=== PATIENT | male | born 1970 ===

== ENCOUNTER 2017-08-22 07:26 | Emergency (ER) | payer OTHER ==
[2017-08-22 07:26] VITALS: BMI 27.3
[2017-08-22 07:31] VITALS: BP 135/86; PULSE 63; TEMP 98.3; O2SAT 99
--- NOTE | 2017-08-22 07:46 | C.PDOC ---
46 y/o male presents to ED with complains of itchy rash to both arms for 6 weeks. Patient reports she noticed redness under eye today and denies fever, drainage, pain or any other complaints at this time. (Bailey Jaquez) History Per: Patient History/Exam Limitations: no limitations Onset/Duration Of Symptoms: Days Current Symptoms Are (Timing): Still Present <Bailey Jaquez - Last Filed: 08/22/17 13:56> <Breezy Arvizu - Last Filed: 08/22/17 20:27> Time Seen by Provider: 08/22/17 07:31 Chief Complaint (Nursing): Abnormal Skin Integrity Past Medical History Reviewed: Historical Data, Nursing Documentation, Vital Signs - Medical History PMH: No Chronic Diseases Surgical History: No Surg Hx Family History: States: No Known Family Hx - Social History Hx Tobacco Use: No Hx Alcohol Use: No Hx Substance Use: No - Immunization History Hx Tetanus Toxoid Vaccination: No Hx Influenza Vaccination: No Hx Pneumococcal Vaccination: No <Bailey Jaquez - Last Filed: 08/22/17 13:56> Vital Signs: Last Vital Signs Temp 98.3 F 08/22/17 07:28 Pulse 63 08/22/17 07:28 Resp 18 08/22/17 08:00 BP 135/86 08/22/17 07:28 Pulse Ox 99 08/22/17 13:57 - [facility] Procedures UNILATERAL ORCHIECTOMY (11/13/14) Review Of Systems Constitutional: Negative for: Fever, Chills Eyes: Positive for: Redness Cardiovascular: Negative for: Chest Pain Respiratory: Negative for: Cough, Shortness of Breath Skin: Positive for: Rash <Bailey Jaquez - Last Filed: 08/22/17 13:56> Physical Exam - Physical Exam Appears: Non-toxic, No Acute Distress Skin: Warm, Dry, Rash (Grady oval shaped patches dry and scaly to right forearm and similar lesion on left arm with smaller blisters scattered. Scant erythematous papular lesions under right eye.) Head: Atraumatic, Normacephalic Eye(s): bilateral: Normal Inspection Oral Mucosa: Moist Throat: Normal, No Erythema, No Exudate Neck: Normal ROM, Supple Cardiovascular: Rhythm Regular Respiratory: Normal Breath Sounds, No Rales, No Rhonchi, No Wheezing Neurological/Psych: Oriented x3, Normal Speech, Normal Cognition <JaquezBailey ireland - Last Filed: 08/22/17 13:56> ED Course And Treatment O2 Sat by Pulse Oximetry: 99 (RA) Pulse Ox Interpretation: Normal <Bailey Jaquez - Last Filed: 08/22/17 13:56> Medical Decision Making: Patient with rash to both arms for one week. No signs of cellulitis. Advise to avoid skin irritants and to keep skin hydrated. Will prescribe topical cream to use and instruct to follow up with cream ripener. (Bailey Jaquez) Disposition Counseled Patient/Family Regarding: Need For Followup, Rx Given - Disposition Disposition Time: 07:45 - POA Present On Arrival: None <LeonidBailey L - Last Filed: 08/22/17 13:56> <Breezy Arvizu - Last Filed: 08/22/17 20:27> - Disposition Referrals: Wayne Mccarty MD [Staff Provider] - [facility] [Outside] Disposition: HOME/ ROUTINE Condition: GOOD Additional Instructions: Take a 20-minute lukewarm bath or shower once a day. Within 3 minutes of getting out of the water, apply a moisturizer to your still-damp skin. This helps hydrate dry skin Apply cream to affected areas You can cover areas with bandage if you like Follow up with cream ripener Prescriptions: Betamethasone Valerate 0.1% [Valisone] 45 gm EXT BID #1 tube Instructions: Eczema (Atopic Dermatitis) (DC) Forms: [facility] (Czech), Work Excuse - Clinical Impression Clinical Impression: Nummular eczema - PA / DIRECTOR OF TESTING / Resident Statement ADRIANA has reviewed & agrees with the documentation as recorded. - Scribe Statement The provider has reviewed the documentation as recorded by the Scribe <Bailey Jaquez - Last Filed: 08/22/17 13:56> - PA / DIRECTOR OF TESTING / Resident Statement ADRIANA has reviewed & agrees with the documentation as recorded. <Breezy Arvizu - Last Filed: 08/22/17 20:27> - Scribe Statement Shilpi Leary All medical record entries made by the Scribe were at my direction and personally dictated by me. I have reviewed the chart and agree that the record accurately reflects my personal performance of the history, physical exam, medical decision making, and the department course for this patient. I have also personally directed, reviewed, and agree with the discharge instructions and disposition. (Bailey Jaquez)
[2017-08-22 08:17] VITALS: RESP 18
== END 2017-08-22 08:18 | disposition home or self-care (01) ==
LOC: C.ER 07:26
DX: L30.0 Nummular dermatitis (principal)

== ENCOUNTER 2018-06-01 23:52 | Emergency (ER) | payer OTHER ==
[2018-06-01 23:55] VITALS: BMI 27.3
[2018-06-02 00:05] VITALS: BP 117/74; PULSE 68; RESP 14; TEMP 97.7; O2SAT 98
[2018-06-02] MEDS ORDERED: Naproxen 550 mg Tab PO ONE (00:32)
--- NOTE | 2018-06-02 00:54 | C.PDOC ---
History Of Present Illness 47 year old male is presents to the ED c/o chronic left knee pain for the past 2 months. Patient reports pain worsened today which prompted the evaluation. Patient states in his job he spend several hours standing. Patient tried taking OTC Ibuprofen with no relief. Patient denies injury, fall, trauma, weakness, numbness. Time Seen by Provider: 06/02/18 00:07 Chief Complaint (Nursing): Lower Extremity Problem/Injury History Per: Patient History/Exam Limitations: no limitations Onset/Duration Of Symptoms: Persistent Current Symptoms Are (Timing): Still Present Severity: None Recent travel outside of the [place]: No Additional History Per: Patient - Knee Description Of Injury: Other Alleviating Factor(s): OTC Pain Medication Past Medical History Reviewed: Historical Data, Nursing Documentation, Vital Signs Vital Signs: Last Vital Signs Temp 97.7 F 06/02/18 00:02 Pulse 68 06/02/18 00:02 Resp 14 06/02/18 00:02 BP 117/74 06/02/18 00:02 Pulse Ox 98 06/02/18 00:02 - Medical History PMH: No Chronic Diseases Denies: Chronic Kidney Disease Surgical History: No Surg Hx - [facility] Procedures UNILATERAL ORCHIECTOMY (11/13/14) Family History: States: Unknown Family Hx - Social History Hx Tobacco Use: No Hx Alcohol Use: No Hx Substance Use: No - Immunization History Hx Tetanus Toxoid Vaccination: No Hx Influenza Vaccination: No Hx Pneumococcal Vaccination: No Review Of Systems Constitutional: Negative for: Fever, Chills Gastrointestinal: Negative for: Nausea, Vomiting Musculoskeletal: Positive for: Leg Pain Skin: Negative for: Rash Neurological: Negative for: Weakness, Numbness, Headache, Dizziness Physical Exam - Physical Exam Appears: Non-toxic, No Acute Distress Skin: Normal Color, Warm, Dry Head: Atraumatic, Normacephalic Eye(s): bilateral: Normal Inspection Neck: Normal ROM, Supple Extremity: Normal ROM, No Tenderness (no wamrth ), Capillary Refill (< 2 seconds), No Swelling, Other (old healed scab anterior aspect left knee) Pulses: Left Dorsalis Pedis: Normal, Right Dorsalis Pedis: Normal Neurological/Psych: Oriented x3, Normal Speech, Normal Cognition, Normal Motor, Normal Sensation Gait: Steady ED Course And Treatment O2 Sat by Pulse Oximetry: 98 (ON RA) Pulse Ox Interpretation: Normal Progress Note: Patient was advised to continue taking NSAIDs for pain but to up the dosage. Patient was informed there was no need for imaging to be done. Patient advised to follow up with PMD and ortho for further evaluation. Disposition Counseled Patient/Family Regarding: Diagnosis, Need For Followup - Disposition Disposition: HOME/ ROUTINE Condition: STABLE Additional Instructions: Use knee brace for support Take medications as prescribed for pain Follow up in clinic or your doctor Return to ER if worse Prescriptions: Naproxen [Naprosyn] 1 tab PO BID PRN #20 tab PRN Reason: Pain Instructions: Patellofemoral Pain (DC) Forms: [employer] (Moldovan) - Clinical Impression Clinical Impression: Knee joint pain - PA / BULKING MACHINE OPERATOR / Resident Statement MD/DO has reviewed & agrees with the documentation as recorded. - Scribe Statement The provider has reviewed the documentation as recorded by the Scribe David Mathews All medical record entries made by the Scribe were at my direction and personally dictated by me. I have reviewed the chart and agree that the record accurately reflects my personal performance of the history, physical exam, medical decision making, and the department course for this patient. I have also personally directed, reviewed, and agree with the discharge instructions and disposition.
== END 2018-06-02 01:05 | disposition home or self-care (01) ==
LOC: C.ER 23:52
DX: M25.562 Pain in left knee (principal)

== ENCOUNTER 2018-06-16 10:32 | Outpatient (CLI) | payer OTHER | END 2018-06-16 10:33 | disposition home or self-care (01) | LOC: C.LAB 10:32 | DX: M25.561 Pain in right knee (principal) ==

== ENCOUNTER 2018-06-16 11:30 | Emergency (ER) | payer OTHER ==
[2018-06-16 11:31] VITALS: BMI 27.3
[2018-06-16 12:01] VITALS: TEMP 97.5; O2SAT 98
--- NOTE | 2018-06-16 12:51 | C.PDOC ---
History Of Present Illness 47 year old male presents to the ED complaining of left knee pain ongoing for 2 months and worse for the past few days. Reports he was seen on 06/02 in the ED and instructed to follow up with Orthopedic. Reports the multi media specialist recommended an Xray and prescribed Meloxicam 15mg but he notes no relief. States he is also taking Ibuprofen 800mg with minimal improvement. States it hurts to walk or bear weight on that leg. Denies any prior injury or trauma. Time Seen by Provider: 06/16/18 12:12 Chief Complaint (Nursing): Lower Extremity Problem/Injury History Per: Patient History/Exam Limitations: no limitations Onset/Duration Of Symptoms: Days Current Symptoms Are (Timing): Still Present - Knee Currently Unable To: Bear Weight Alleviating Factor(s): denies: OTC Pain Medication Past Medical History Reviewed: Historical Data, Nursing Documentation, Vital Signs Vital Signs: Last Vital Signs Temp 97.5 F L 06/16/18 11:55 Pulse 70 06/16/18 11:55 Resp 20 06/16/18 11:55 BP 131/73 06/16/18 11:55 Pulse Ox 98 06/16/18 11:55 - Medical History PMH: Denies: Chronic Kidney Disease Other PMH: Glaucoma Other Surgeries: Hx of surgeries - [facility] Procedures UNILATERAL ORCHIECTOMY (11/13/14) Family History: States: No Known Family Hx - Social History Hx Tobacco Use: No Hx Alcohol Use: Yes Hx Substance Use: No - Immunization History Hx Tetanus Toxoid Vaccination: No Hx Influenza Vaccination: No Hx Pneumococcal Vaccination: No Review Of Systems Except As Marked, All Systems Reviewed And Found Negative. Musculoskeletal: Positive for: Other (right knee pain ) Neurological: Negative for: Weakness, Numbness Physical Exam - Physical Exam Appears: Non-toxic, No Acute Distress Skin: Warm, Dry Head: Normacephalic Eye(s): bilateral: Normal Inspection Nose: Normal Oral Mucosa: Moist Neck: Supple Chest: Symmetrical Cardiovascular: Rhythm Regular Respiratory: No Rales, No Rhonchi, No Wheezing, Other (NARD) Extremity: Tenderness (reproducible pain to medial aspect of left knee ), Capillary Refill (less than 2 sec to left knee ), No Deformity, Swelling (minimal swelling to left knee), No Other (knee subluxation) Extremity: Bilateral: Normal Color And Temperature, Normal ROM Pulses: Left Dorsalis Pedis: Normal, Right Dorsalis Pedis: Normal Neurological/Psych: Oriented x3, Normal Speech, Normal Motor, Normal Sensation Gait: Steady ED Course And Treatment O2 Sat by Pulse Oximetry: 98 (RA) Pulse Ox Interpretation: Normal - Other Rad L KNEE X-Ray: Interpreted by Me (NEG) Reevaluation Time: 13:18 Reassessment Condition: Improved (PS FEELS BETTER W MOTRIN 800 MG. ADVISED TO STOP MOBIC, CONT W MOTRIN AND CAN COMBO W TYLENOL. NEED FOR ORTHO FU) Medical Decision Making Medical Decision Making: Plan - XR left knee - Toradol 60mg IM Disposition Counseled Patient/Family Regarding: Studies Performed, Diagnosis, Need For Followup, Rx Given - Disposition Referrals: Tab Sparks III, MD [Staff Provider] - [facility] [Outside] [facility] [Outside] [facility],ORTHOPEDIST [Other] Disposition: HOME/ ROUTINE Disposition Time: 13:01 Condition: IMPROVED Instructions: Chronic Knee Pain (DC) Forms: [facility] (Romansh), Work Excuse - Clinical Impression Clinical Impression: Knee joint pain - Scribe Statement The provider has reviewed the documentation as recorded by the Scribe Kat Lee All medical record entries made by the Scribe were at my direction and personally dictated by me. I have reviewed the chart and agree that the record accurately reflects my personal performance of the history, physical exam, medical decision making, and the department course for this patient. I have also personally directed, reviewed, and agree with the discharge instructions and disposition.
[2018-06-16 13:31] VITALS: BP 127/79; PULSE 65; RESP 18
--- NOTE | 2018-06-16 17:48 | RAD ---
Date of service: 06/16/2018 PROCEDURE: Left Knee Radiographs. HISTORY: Pain. COMPARISON: None. TECHNIQUE: 2 views obtained. FINDINGS: BONES: Normal. No fracture. JOINTS: Normal. No osteoarthritis. JOINT EFFUSION: None. OTHER FINDINGS: None. IMPRESSION: No evidence of acute fracture or dislocation.
== END 2018-06-16 13:38 | disposition home or self-care (01) ==
LOC: C.ER 11:30
DX: M25.562 Pain in left knee (principal)

== ENCOUNTER 2018-07-06 19:43 | Emergency (ER) | payer OTHER ==
[2018-07-06 19:44] VITALS: BMI 27.3
[2018-07-06 19:53] VITALS: BP 132/81; PULSE 75; RESP 20; TEMP 97.9; O2SAT 96
--- NOTE | 2018-07-06 20:02 | C.PDOC ---
History Of Present Illness 47 year old male presents to ED with complaint of back pain s/p fall. Patient was playing with his son and hopping from one couch to another backwards and hit the wooden arm rest and fell on the floor. Patient states that he was on the floor for several minutes. He rates the pain as a 10/10 and throbbing. He denies head injury, loss of consciousness, headache, dizziness, numbness, tingling, and weakness. Time Seen by Provider: 07/06/18 19:54 Chief Complaint (Nursing): Back Pain History Per: Patient History/Exam Limitations: no limitations Onset/Duration Of Symptoms: Hrs Current Symptoms Are (Timing): Still Present Quality Of Discomfort: "Pain", Other (throbbing) Pain Scale Rating Of: 10 Previous Symptoms: None Associated Symptoms: denies: New Weakness, New Numbness Past Medical History Reviewed: Historical Data, Nursing Documentation, Vital Signs Vital Signs: Last Vital Signs Temp 97.9 F 07/06/18 19:44 Pulse 75 07/06/18 19:44 Resp 20 07/06/18 19:44 BP 132/81 07/06/18 19:44 Pulse Ox 96 07/06/18 19:44 - Medical History PMH: No Chronic Diseases Denies: Chronic Kidney Disease Surgical History: No Surg Hx - [facility] Procedures UNILATERAL ORCHIECTOMY (11/13/14) Family History: States: Unknown Family Hx - Social History Hx Tobacco Use: No Hx Alcohol Use: No Hx Substance Use: No - Immunization History Hx Tetanus Toxoid Vaccination: No Hx Influenza Vaccination: No Hx Pneumococcal Vaccination: No Review Of Systems Constitutional: Negative for: Weakness Genitourinary: Negative for: Incontinence Musculoskeletal: Positive for: Back Pain. Negative for: Neck Pain Neurological: Negative for: Weakness, Numbness, Headache, Other (loss of consciousness) Physical Exam - Physical Exam Appears: Well, Non-toxic, No Acute Distress Skin: Normal Color, Warm, Dry Head: Atraumatic, Normacephalic Neck: Normal ROM, Supple Chest: Symmetrical, No Deformity Cardiovascular: Rhythm Regular, No Murmur Respiratory: No Accessory Muscle Use, No Rales, No Rhonchi, No Wheezing Gastrointestinal/Abdominal: Soft, No Tenderness Back: Vertebral Tenderness (lumbar area, left-sided), Paraspinal Tenderness (lumbar area, left-sided; greater pain to palpation on the left side), No Straight Leg Raising Extremity: Capillary Refill (<2 seconds) Neurological/Psych: Oriented x3, Normal Speech, Normal Cognition ED Course And Treatment O2 Sat by Pulse Oximetry: 96 (in RA) Pulse Ox Interpretation: Normal - Other Rad LS spine X-Ray: Viewed By Me, Read By Radiologist Interpretation: Accession No. : [id number]. Patient Name / ID : JUAN MADDOX / [id number]. Exam Date : 07/06/2018 20:12:02 ( Approved ). Study Comment : Sex / Age : M / 47Y. Creator : Jennifer Mcfarland MD. Dictator : Jennifer Mcfarland MD. Division Operations Manager : Reception Interviewer : Jennifer Mcfarland MD. Approver2 : Report Date : 07/06/2018 22:05:51. My Comment : . Date of service: 07/06/2018. PROCEDURE: Radiographs of the Lumbar Spine. HISTORY: s/p fall. COMPARISON: No prior. TECHNIQUE: 3 views obtained. FINDINGS: BONES: There is normal alignment of the lumbar vertebral bodies. There is normal lumbar lordosis. There is no acute fracture or spondylolisthesis. There is question of an oblique lucency in the L5 pars interarticularis. Bone mineralization is normal. DISC SPACES: There are multilevel degenerative changes with anterior osteophytes, reduced disc heights and multilevel facet arthropathy worse at L5-S1. OTHER FINDINGS: There are no pathologic soft tissue calcifications. Both sacroiliac joints are normal. IMPRESSION: No acute fracture. Suspect radiolucency in the pars interarticularis at L5 which may represent spondylolysis. Dedicated oblique radiographs would be helpful for further evaluation. Medical Decision Making Medical Decision Making: Impression: 47 year old male with back pain s/p fall. Plan: Naproxen, Flexeril, and Lidoderm patch given X-ray of the lumbar spine- no acute fracture but questionable spondylolysis D/w patient results Follow up with Ortho in 1-2 days for possible MRI if pain persists Patient was discharged with above meds to continue Advised to apply ice to area as needed and rest patient is stable for discharge Disposition Counseled Patient/Family Regarding: Studies Performed, Diagnosis, Need For Followup, Rx Given - Disposition Referrals: Rai Vargas MD [Staff Provider] - Disposition: HOME/ ROUTINE Disposition Time: 20:58 Condition: STABLE Additional Instructions: VARSHA MARTINEZ, thank you for letting us take care of you today. Your provider was Benjy Nguyen MD and you were treated for BACK PAINS. The emergency medical care you received today was directed at your acute symptoms. If you were prescribed any medication, please fill it and take as directed. It may take several days for your symptoms to resolve. Return to the Emergency Department if your symptoms worsen, do not improve, or if you have any other problems. Please contact your doctor or call one of the physicians/clinics you have been referred to that are listed on the Patient Visit Information form that is included in your discharge packet. Bring any paperwork you were given at discharge with you along with any medications you are taking to your follow up visit. Our treatment cannot replace ongoing medical care by a primary care provider outside of the emergency department. Thank you for allowing the [facility] team to be part of your care today. If you had an X-Ray or CT scan: A Radiologist will review the ED reading if any change in treatment is needed we will contact you. Continue Meds as instructed Apply ice to area as needed Rest Follow up with Ortho in 1-2 days for possible MRI if pain persists Return to The ED if symptoms worsen Prescriptions: Cyclobenzaprine [Flexeril] 10 mg PO TID PRN #15 tab PRN Reason: Muscle Spasm Lidocaine 5% [Lidoderm] 1 ea TD DAILY PRN #30 patch PRN Reason: Pain, Moderate (4-7) Naproxen [Naprosyn] 500 mg PO BID #30 tablet Instructions: Lumbar Muscle Strain Forms: [employer] (Czech) - Clinical Impression Clinical Impression: Low back pain, Lumbar sprain - PA / FURNITURE FABRICATOR / Resident Statement MD/DO has reviewed & agrees with the documentation as recorded. (Iliana Delacruz) - Scribe Statement The provider has reviewed the documentation as recorded by the Scribe (Iliana Delacruz) All medical record entries made by the Scribe were at my direction and personally dictated by me. I have reviewed the chart and agree that the record accurately reflects my personal performance of the history, physical exam, medical decision making, and the department course for this patient. I have also personally directed, reviewed, and agree with the discharge instructions and disposition.
[2018-07-06] MEDS ORDERED: Naproxen 550 mg Tab PO STA (20:03)
[2018-07-06] MEDS ORDERED: Lidocaine 5% Patch TD ONE (20:13)
[2018-07-06] MEDS ORDERED: Naproxen 550 mg Tab PO ONE (20:13)
--- NOTE | 2018-07-06 22:09 | RAD ---
Date of service: 07/06/2018 PROCEDURE: Radiographs of the Lumbar Spine. HISTORY: s/p fall COMPARISON: No prior. TECHNIQUE: 3 views obtained. FINDINGS: BONES: There is normal alignment of the lumbar vertebral bodies. There is normal lumbar lordosis. There is no acute fracture or spondylolisthesis. There is question of an oblique lucency in the L5 pars interarticularis. Bone mineralization is normal. DISC SPACES: There are multilevel degenerative changes with anterior osteophytes, reduced disc heights and multilevel facet arthropathy worse at L5-S1. OTHER FINDINGS: There are no pathologic soft tissue calcifications. Both sacroiliac joints are normal. IMPRESSION: No acute fracture. Suspect radiolucency in the pars interarticularis at L5 which may represent spondylolysis. Dedicated oblique radiographs would be helpful for further evaluation. The final report is tagged to the PA review folder.
[2018-07-07] MEDS ORDERED: Lidocaine 5% Patch TD SCH (10:00)
== END 2018-07-06 21:10 | disposition home or self-care (01) ==
LOC: C.ER 19:43
DX: S33.5XXA Sprain of ligaments of lumbar spine, initial encounter (principal); M54.5 Low back pain; W18.09XA Striking against other object with subsequent fall, initial encounter; Y92.009 Unspecified place in unspecified non-institutional (private) residence as the place of occurrence of the external cause